=== PATIENT | female | born 1990 | race Caucasian/White ===

== ENCOUNTER → 2017-02-25 | Outpatient (CLI) | payer OTHER ==
[~2017-02-25] MED LIST: GADAVIST IV PRN
--- NOTE | 2017-02-25 13:33 | DIAGNOSTIC IMAGING REPORT ---
ULTRASOUND OF THE CAROTID ARTERIES CLINICAL HISTORY: Syncope. COMPARISON STUDY: No priors. TECHNIQUE: Real-time, grayscale, and color Doppler sonography of the carotid arteries is performed. Images are reviewed in the transverse and longitudinal planes. FINDINGS: Blood pressure in the right arm measures 134/98 and blood pressure in the left arm measures 140/88. The carotid arteries are patent bilaterally and demonstrate antegrade flow. There is no significant atherosclerotic plaque identified. Normal doppler arterial waveforms are seen throughout. Velocity measurements are listed below. Common carotid peak systolic velocity (cm/sec): RIGHT: 104 LEFT: 84 ICA proximal peak systolic velocity (cm/sec): RIGHT: 89 LEFT: 46 ICA mid peak systolic velocity (cm/sec): RIGHT: 63 LEFT: 77 ICA distal peak systolic velocity (cm/sec): RIGHT: 90 LEFT: 84 ICA/CC peak systolic ratio: RIGHT: 0.9 LEFT: 1.0 Antegrade flow was shown in the vertebral arteries. The external carotid arteries are patent. IMPRESSION: 1. There is no sonographic evidence of hemodynamically significant stenosis in the right or left carotid arterial system. 2. Antegrade flow is shown in the vertebral arteries. Electronically signed by: Matt Blair M.D. 02/25/2017 1:32 PM Dictated Date/Time: 02/25/2017 1:31 PM
--- NOTE | 2017-02-25 13:41 | DIAGNOSTIC IMAGING REPORT ---
CERVICAL SPINE COMBO HISTORY: Pain. Neuropathy. DEMYELINATING DIS,SEIZURE LIKE ACTIVITY,SYNCOPE TECHNIQUE: Multiplanar multisequence MRI of the cervical spine was performed both before and after the use of intravenous contrast. COMPARISON STUDY: None. FINDINGS: Signal characteristics of the vertebral bodies as well as intervertebral discs appear unremarkable. Signal characteristics of the cervical cord indicate a linear focus of increased signal involving the left posterior column of the cervical cord at C4. As is a maximum linear dimension of 7 mm. Transaxial measurement of 4 x 3 mm. No additional foci of altered signal are present. There is no evidence for disc herniation or spinal stenosis. There is no evidence for abnormal postcontrast enhancement in either the transaxial or sagittal planes. IMPRESSION: 1. Solitary focus of increased signal left posterior column of the cervical cord at C4. 2. Dimensions are 7 x 4 x 3 mm. 3. No evidence for abnormal postcontrast enhancement. 4. No evidence for disc herniation or spinal stenosis. 5. The scan suggests the possibility of a demyelinating disorder with a plaque at C4 The above report was generated using voice recognition software. It may contain grammatical, syntax or spelling errors. Electronically signed by: Nelson Philippe M.D. 02/25/2017 1:40 PM Dictated Date/Time: 02/25/2017 1:32 PM
== END | disposition home or self-care (01) ==
LOC: C.MRIBC 11:26
PROVIDERS: ATTEND Psychiatry & Neurology Neurology
DX: G37.9 Demyelinating disease of central nervous system, unspecified (principal); R55 Syncope and collapse

== ENCOUNTER → 2017-02-25 | Outpatient (CLI) | payer OTHER ==
--- NOTE | 2017-02-26 17:12 | EEG Procedure Note ---
EEG Procedure Note Date of Service Feb 25, 2017. Start / End Times Start Time: 1:44 PM End Time: 2:05 PM Referring Physician Chalino Mejias History This is a 26-year-old female with seizure-like activity. EEG for further evaluation of possible seizure etiology. Description This is a 21 electrode EEG with a single channel dedicated to limited EKG. The electrodes were placed in accordance with the International 10-20 system. At the start of the recording the patient was in an awake state. Background was well organized and composed of symmetric mixed alpha and beta frequencies. There was a symmetric well-formed moderate amplitude 11 Hz posterior dominant rhythm that was reactive to eye opening and closure. Hyperventilation was not done. Intermittent photic stimulation at various frequencies produced no abnormalities. Drowsiness was indicated by loss muscle artifact and slowing of the background rhythm. There was no sleep transients. Interpretation This is a normal awake and drowsy routine EEG. There was no electrographic seizures or epileptiform discharges. Clinical Correlation A normal EEG does not rule out epilepsy if there is a strong clinical suspicion.
== END | disposition home or self-care (01) ==
LOC: C.NEUR 13:26
PROVIDERS: ATTEND Psychiatry & Neurology Neurology
DX: R56.9 Unspecified convulsions (principal); R55 Syncope and collapse

== ENCOUNTER → 2017-03-19 | Day surgery (SDC) | payer OTHER ==
[2017-03-19] VITALS (8 sets, daily range): BP systolic 98–129; BP diastolic 54–79; PULSE 56–77; TEMP 36.7–37.4; O2SAT 96–100; Ht 167.6 cm; Wt 94.0 kg
[~2017-03-19] VITALS: Ht 167.6 cm; Wt 94.0 kg
[~2017-03-19] MED LIST changes: +ACETAMINOPHEN 500 MG TAB PO PRN; -GADAVIST IV PRN; +RMCI
--- NOTE | 2017-03-19 09:16 | DIAGNOSTIC IMAGING REPORT ---
LUMBAR PUNCTURE DIAGNOSTIC CLINICAL HISTORY: 26 years-old Female with R/O MS. Neck pain with concern for demyelinating disease PROCEDURE: The risks, benefits, and alternatives to the procedure is discussed with the patient who voiced understanding. Written informed consent was obtained. The patient was placed prone on the fluoroscopy table. The lower back was prepped and draped in the usual sterile fashion. 1% lidocaine was used for local anesthesia. A 20-gauge spinal needle was inserted into the L3-L4 and L4-L5 interlaminar spaces, and upon attempts at both levels and confirmation with proper needle positioning with the fluoroscopic images, there was no return of cerebral spinal fluid. The patient tolerated the procedure well. There were no immediate complications. The patient was then transported to the medical treatment unit for further observation. Fluoroscopy time: 0.8 IMPRESSION: Fluoroscopic guided lumbar puncture with unsuccessful removal of cerebrospinal fluid. There were no immediate complications. The above report was generated using voice recognition software. It may contain grammatical, syntax or spelling errors. Electronically signed by: Rey Smith M.D. 03/19/2017 9:15 AM Dictated Date/Time: 03/19/2017 9:06 AM
--- NOTE | 2017-03-19 09:20 | Discharge Instructions ---
Discharge Instructions Procedure Procedure Date: Mar 19, 2017. Reason for visit: Demyelinating Disease, Abn Mri. Discharge Discharge Date: Mar 19, 2017. Discharge Diagnosis: SAME Instructions Activity Recommendations: No limitations Return to School/Work: no limitations Recommended Home Diet: No Limitations, Resume Previous Diet Provider Instructions: ACTIVITY RECOMMENDATIONS: * Rest today. * Resume regular activity in one day. MEDICATIONS: * May take Tylenol or Ibuprofen as needed for pain. DIET: * Resume previous diet. SPECIAL CARE INSTRUCTIONS: Call your doctor if: * Temperature above 101 degrees F. * Pain not relieved by pain medicine ordered. * Increased drainage or redness from incision. * Notify your doctor with any questions or concerns. Call your doctor or go to the nearest Emergency Department if you experience: * Increased chest pain or shortness of breath. FOLLOW UP VISIT: Follow-up with Referring Physician as scheduled. Allergies Coded Allergies: Amoxicillin (Verified Allergy, Unknown, hives, 03/19/17) Cefaclor (Verified Allergy, Unknown, hives, 03/19/17) Uncoded Allergies: PENICILLIN (Allergy, Unknown, hives, 03/19/17) Jennifer Roe Recommendations: Call your doctor if: * Temperature above 101 degrees * Pain not relieved by pain medicine ordered * There is increased drainage or redness from any incision * You have any unanswered questions or concerns. Your Doctors Instructions noted above were prepared by provider Abad Smith. Patient Signature Section: Patient Instructions Signature Page Alise Castle Patient (or Guardian) Signature/Date: I have read and understand the instructions given to me by my caregivers. Caregiver/RN/Doctor Signature/Date: The above-named patient and/or guardian has received patient instructions on this date. + Original Patient Signature Page (only) stays with chart. Please make copy for patient.
[2017-03-19 11:36] LABS: LYME DISEASE AB IGG NEG (NEG); LYME DISEASE AB IGM NEG (NEG)
== END | disposition home or self-care (01) ==
LOC: C.ACU 06:22
PROVIDERS: ATTEND Psychiatry & Neurology Neurology
DX: G37.9 Demyelinating disease of central nervous system, unspecified (principal)

== ENCOUNTER → 2017-11-08 | Outpatient (CLI) | payer OTHER ==
[~2017-11-08] MED LIST changes: -ACETAMINOPHEN 500 MG TAB PO PRN
[2017-11-08 13:02] LABS: BASO % 0.4 %; BASO ABS # 0.05 K/uL (0-0.2); EOS ABS # 0.65 K/uL (0-0.5); HEMATOCRIT 41.4 % (37-47); HEMOGLOBIN 13.9 g/dL (12.0-16.0); IG# 0.04 K/uL (0.00-0.02); MEAN CELL VOLUME 86.6 fL (80-100); MEAN CORPUSCULAR HEMOGLOBIN 29.1 pg (25-34); MEAN CORPUSCULAR HGB CONC 33.6 g/dl (32-36); MEAN PLATELET VOLUME 10.3 fL (7.4-10.4); MONO % 7.8 %; MONO ABS # 1.02 K/uL (0.11-0.59); NEUT % 63.5 %; NEUT ABS # 8.27 K/uL (1.4-6.5); PLATELET COUNT 303 K/uL (130-400); RED CELL DISTRIBUTION WIDTH CV 13.5 % (11.5-14.5); RED CELL DISTRIBUTION WIDTH SD 42.5 fL (36.4-46.3); WHITE BLOOD COUNT 13.03 K/uL (4.8-10.8)
[2017-11-08 14:17] LABS: BLOOD UREA NITROGEN 15 mg/dl (7-18); CREATININE 0.81 mg/dl (0.60-1.20); GLUCOSE 80 mg/dl (70-99)
[2017-11-08 14:18] LABS: ALBUMIN 3.6 gm/dl (3.4-5.0); ALKALINE PHOSPHATASE 68 U/L (45-117); ALT/SGPT 24 U/L (12-78); AST/SGOT 10 U/L (15-37); CALCIUM 8.5 mg/dl (8.5-10.1); CARBON DIOXIDE 24 mmol/L (21-32); POTASSIUM 3.6 mmol/L (3.5-5.1); SODIUM 137 mmol/L (136-145); TOTAL PROTEIN 7.2 gm/dl (6.4-8.2)
== END | disposition home or self-care (01) ==
LOC: C.LABMFLN 08:38
PROVIDERS: ATTEND Psychiatry & Neurology Neurology
DX: R53.83 Other fatigue (principal)